=== PATIENT | female | born 1955 | race Two or more races ===

== ENCOUNTER → 2017-07-25 | Outpatient (CLI) | payer MEDICARE, MEDICAID | END | disposition home or self-care (01) | LOC: HKI 10:05 | DX: M17.11 Unilateral primary osteoarthritis, right knee (principal); M21.061 Valgus deformity, not elsewhere classified, right knee | CPT/HCPCS: 73562; 73562-50 ==

== ENCOUNTER → 2017-09-05 | Outpatient (CLI) | payer MEDICARE, OTHER, MEDICAID | END | disposition home or self-care (01) | LOC: HKI 10:21 | DX: Z01.818 Encounter for other preprocedural examination (principal) | CPT/HCPCS: G0463 ==

== ENCOUNTER 2017-09-15 07:30 | Observation (INO) | payer MEDICARE, OTHER, MEDICAID ==
[2017-09-15] MEDS: ONDANSETRON 4 MG INJ IV ×4 (06:00→23:00)
[~2017-09-15 07:30] MED LIST: DEXAMETHASONE 4 MG/ML 1 ML INJ; LACTATED RINGER'S 1,000 ML IV*; LIDOCAINE 2% (SDV) 5 ML INJ; PROPOFOL 200 MG INJ
[2017-09-15] MEDS: ACETAMINOPHEN 1000MG/100ML IV 100 ML IVPB (09:30)
[2017-09-15] MEDS: DEXAMETHASONE 4 MG/ML 1 ML INJ IV (09:31)
[2017-09-15] MEDS: LANSOPRAZOLE 30 MG CAP PO (09:32)
[2017-09-15] MEDS ORDERED: BUPIVACAINE 0.75%/DEXT (SPINAL) 2 ML INJ (10:38)
[2017-09-15] MEDS ORDERED: FENTAnyl 50 MCG/ML VIAL (10:38)
[2017-09-15] MEDS ORDERED: MIDAZOLAM 1 MG/ML 2 ML INJ (10:39)
[2017-09-15] MEDS ORDERED: CEFAZOLIN 1 GM INJ (10:56)
[2017-09-15] MEDS ORDERED: PHENYLephrine (100 MCG/ML) 10ML SYG ×2 (10:56→11:44)
[2017-09-15] MEDS ORDERED: NALOXONE (0.4 MG/ML) INJ IV (11:00)
[2017-09-15] MEDS ORDERED: DIPHENHYDRAMINE 50 MG INJ IV ×2 (11:00→13:00)
[2017-09-15] MEDS ORDERED: BISACODYL 10 MG SUPP PR (11:00)
[2017-09-15] MEDS ORDERED: oxyCODONE 5 MG TAB PO (11:00)
[2017-09-15] MEDS ORDERED: BETHANECHOL 25 MG TAB PO (11:00)
[2017-09-15] MEDS ORDERED: NA PHOSPHATE/BIPHOS 133 ML ENEMA PR (11:00)
[2017-09-15] MEDS: CEFAZOLIN 2 GM/50 ML (PMX) 50 ML IVPB (11:00)
[2017-09-15] MEDS ORDERED: MAGNESIUM HYDROXIDE 30ML CUP PO (11:00)
[2017-09-15] MEDS ORDERED: EPHEDrine 50 MG INJ (11:13)
[2017-09-15] MEDS: TRANEXAMIC ACID 1,000 MG in NS 100 ML PRE-OP X1 IVPB (11:15)
[2017-09-15] MEDS: POLYMYXIN B 500000 UNIT INJ IRR (11:34)
[2017-09-15] MEDS: BACITRACIN 50000 UNITS INJ IRR (11:35)
[2017-09-15] MEDS ORDERED: DEXAMETHASONE 4 MG/ML 1 ML INJ (12:19)
[2017-09-15] MEDS ORDERED: ROPIVACAINE 0.5 % 30 ML VIAL (12:19)
[2017-09-15] MEDS ORDERED: FAMOTIDINE 20 MG INJ (12:28)
[2017-09-15] MEDS ORDERED: ONDANSETRON 4 MG INJ (12:28)
[2017-09-15] MEDS: TRANEXAMIC ACID 1,000 MG in NS 100 ML INTRA-OP X1 IVPB (12:30)
[2017-09-15] MEDS ORDERED: ONDANSETRON 4 MG INJ IV (13:00)
[2017-09-15] MEDS ORDERED: HYDROmorphONE 1 MG/5 ML IV SYRINGE IV (13:00)
[2017-09-15] MEDS ORDERED: MEPERIDINE 25 MG INJ IV (13:00)
[2017-09-15] MEDS: DOCUSATE SODIUM 100 MG CAP PO (13:30)
[2017-09-15] MEDS: ASPIRIN (EC) 325 MG TAB PO (13:30)
[2017-09-15] MEDS: CEFAZOLIN 1 GM/50 ML (PMX) 50 ML IVPB ×2 (13:31→19:53)
[2017-09-15] MEDS: oxyCODONE 5 MG TAB PO ×2 (17:36→21:32)
[2017-09-15] MEDS: SOD CHLORIDE 0.9% 1,000 ML IV ×2 (17:38→23:24)
[2017-09-16] MEDS: CEFAZOLIN 1 GM/50 ML (PMX) 50 ML IVPB (02:12)
[2017-09-16] MEDS: SOD CHLORIDE 0.9% 1,000 ML IV ×3 (02:14→21:54)
[2017-09-16] MEDS: ONDANSETRON 4 MG INJ IV (05:00)
[2017-09-16] MEDS: oxyCODONE 5 MG TAB PO ×5 (05:21→20:42)
[2017-09-16 05:22] LABS: ADD MAN DIFF? NO
[2017-09-16 05:34] LABS: BASOPHILS % 0.1 % (0.0-2.0); HEMATOCRIT 32.4 % (37.0-47.0); HEMOGLOBIN 10.6 g/dl (12.0-16.0); LYMPHOCYTES # 1.8 10^3/ul (0.8-2.9); LYMPHOCYTES % 10.3 % (15.0-51.0); MEAN CORPUSCULAR HEMOGLOBIN 30.8 pg (29.0-33.0); MEAN CORPUSCULAR HGB CONC 32.7 g/dl (32.0-37.0); MEAN CORPUSCULAR VOLUME 94.2 fl (82.0-101.0); MEAN PLATELET VOLUME 9.5 fl (7.4-10.4); MONOCYTE # 1.1 10^3/ul (0.3-0.9); MONOCYTES % 6.1 % (0.0-11.0); NEUTROPHIL # 14.7 10^3/ul (1.6-7.5); PLATELET COUNT 191 10^3/UL (140-415); RED BLOOD COUNT 3.44 10^6/ul (4.20-5.40); RED CELL DISTRIBUTION WIDTH 13.2 % (11.5-14.5)
[2017-09-16 05:34] LABS: WHITE BLOOD COUNT 17.7 10^3/ul (4.8-10.8)
[2017-09-16 05:52] LABS: ANION GAP 14 (8-16); BLOOD UREA NITROGEN 10 mg/dl (7-20); CALCIUM 9.2 mg/dl (8.4-10.2); CARBON DIOXIDE 24 mmol/L (21-31); CHLORIDE 107 mmol/L (97-110); CREATININE 0.49 mg/dl (0.44-1.00); GLUCOSE 170 mg/dl (70-220); POTASSIUM 4.1 mmol/L (3.5-5.1); SODIUM 141 mmol/L (135-144)
[2017-09-16] MEDS: DOCUSATE SODIUM 100 MG CAP PO ×2 (08:49→20:34)
[2017-09-16] MEDS: ASPIRIN (EC) 325 MG TAB PO (08:49)
[2017-09-16] MEDS: FERROUS FUMARATE (SR) TAB PO ×2 (08:50→20:34)
[2017-09-16] MEDS: CELECOXIB 100 MG CAP PO ×2 (08:50→20:34)
[2017-09-16] MEDS: GABAPENTIN 100 MG CAP PO ×2 (08:50→20:34)
[2017-09-16] MEDS: ZOLPIDEM 5 MG TAB PO (20:34)
[2017-09-17] MEDS: ACETAMINOPHEN 325 MG TAB PO (02:05)
[2017-09-17] MEDS: KETOROLAC 15 MG INJ IV (02:06)
[2017-09-17 04:59] LABS: ADD MAN DIFF? NO
[2017-09-17 05:07] LABS: WHITE BLOOD COUNT 10.3 10^3/ul (4.8-10.8)
[2017-09-17 05:07] LABS: BASOPHILS % 0.3 % (0.0-2.0); EOSINOPHILS # 0.1 10^3/ul (0.0-0.5); HEMATOCRIT 31.6 % (37.0-47.0); HEMOGLOBIN 10.2 g/dl (12.0-16.0); LYMPHOCYTES # 3.5 10^3/ul (0.8-2.9); LYMPHOCYTES % 34.3 % (15.0-51.0); MEAN CORPUSCULAR HEMOGLOBIN 30.4 pg (29.0-33.0); MEAN CORPUSCULAR HGB CONC 32.3 g/dl (32.0-37.0); MEAN PLATELET VOLUME 9.7 fl (7.4-10.4); MONOCYTE # 0.9 10^3/ul (0.3-0.9); MONOCYTES % 8.7 % (0.0-11.0); NEUTROPHIL # 5.7 10^3/ul (1.6-7.5); NEUTROPHILS % 55.4 % (39.0-77.0); PLATELET COUNT 178 10^3/UL (140-415); RED BLOOD COUNT 3.36 10^6/ul (4.20-5.40); RED CELL DISTRIBUTION WIDTH 13.5 % (11.5-14.5)
[2017-09-17 05:37] LABS: ANION GAP 11 (8-16); BLOOD UREA NITROGEN 17 mg/dl (7-20); CALCIUM 8.8 mg/dl (8.4-10.2); CARBON DIOXIDE 30 mmol/L (21-31); CHLORIDE 107 mmol/L (97-110); CREATININE 0.64 mg/dl (0.44-1.00); GLUCOSE 117 mg/dl (70-220); POTASSIUM 4.5 mmol/L (3.5-5.1); SODIUM 143 mmol/L (135-144)
[2017-09-17] MEDS: PANTOPRAZOLE (EC) 40 MG TAB PO (05:58)
[2017-09-17] MEDS: FERROUS FUMARATE (SR) TAB PO (09:07)
[2017-09-17] MEDS: ASPIRIN (EC) 325 MG TAB PO (09:07)
[2017-09-17] MEDS: SENNA/DOCUSATE NA (8.6MG/50MG) TAB PO (09:07)
[2017-09-17] MEDS: CELECOXIB 100 MG CAP PO (09:07)
[2017-09-17] MEDS: GABAPENTIN 100 MG CAP PO (09:07)
[2017-09-17] MEDS: DOCUSATE SODIUM 100 MG CAP PO (09:08)
[2017-09-17] MEDS: oxyCODONE 5 MG TAB PO (09:08)
[2017-09-17] MEDS: SOD CHLORIDE 0.9% 1,000 ML IV (11:19)
== END 2017-09-17 15:00 | disposition home health service (06) ==
LOC: REC 07:30 → MS1 13:53
DX: M17.11 Unilateral primary osteoarthritis, right knee (principal); F17.210 Nicotine dependence, cigarettes, uncomplicated; J45.909 Unspecified asthma, uncomplicated; G47.00 Insomnia, unspecified
CPT/HCPCS: 27447; 73560; 80048; 85025; 86850; 86900; 86901; 87081; 88304; 88311; 97110; 97116; 97161; 97167; 97530; 97535; 99217

== ENCOUNTER → 2017-09-26 | Outpatient (CLI) | payer MEDICARE, OTHER, MEDICAID | END | disposition home or self-care (01) | LOC: HKI 10:11 | DX: Z09 Encounter for follow-up examination after completed treatment for conditions other than malignant neoplasm (principal); M25.561 Pain in right knee | CPT/HCPCS: 73560; 73560-RT ==

== ENCOUNTER → 2017-10-24 | Outpatient (CLI) | payer MEDICARE, MEDICAID | END | disposition home or self-care (01) | LOC: HKI 09:26 | DX: Z09 Encounter for follow-up examination after completed treatment for conditions other than malignant neoplasm (principal); Z96.651 Presence of right artificial knee joint | CPT/HCPCS: 73560; 73560-RT ==

== ENCOUNTER 2017-10-31 22:07 | Emergency (ER) | payer MEDICARE, OTHER, MEDICAID ==
[2017-10-31] MEDS: ONDANSETRON (ODT) 4 MG TAB ODT (23:57)
== END 2017-11-01 01:30 | disposition home or self-care (01) ==
LOC: FTE 11-01 01:30
DX: R09.89 Other specified symptoms and signs involving the circulatory and respiratory systems (principal); F17.210 Nicotine dependence, cigarettes, uncomplicated
CPT/HCPCS: 70360; 99283-25

== ENCOUNTER 2017-11-16 20:43 | Emergency (ER) | payer MEDICARE, OTHER ==
[2017-11-17] MEDS: IBUPROFEN 600 MG TAB PO (02:06)
[2017-11-17] MEDS: LIDOCAINE 2%/EPI MPF (SDV) 20 ML VIAL INJ (02:17)
== END 2017-11-17 04:10 | disposition home or self-care (01) ==
LOC: FTE 20:43
DX: S81.011A Laceration without foreign body, right knee, initial encounter (principal); F17.210 Nicotine dependence, cigarettes, uncomplicated; W19.XXXA Unspecified fall, initial encounter; Y92.9 Unspecified place or not applicable; Z96.651 Presence of right artificial knee joint
CPT/HCPCS: 12002; 73562; 99283-25

== ENCOUNTER 2017-11-18 10:56 | Emergency (ER) | payer MEDICARE, OTHER | END 2017-11-18 12:49 | disposition home or self-care (01) | LOC: FTE 10:56 | DX: Z48.01 Encounter for change or removal of surgical wound dressing (principal); F17.210 Nicotine dependence, cigarettes, uncomplicated | CPT/HCPCS: 99283 ==

== ENCOUNTER 2017-11-25 10:33 | Emergency (ER) | payer MEDICARE, OTHER | END 2017-11-25 11:36 | disposition home or self-care (01) | LOC: FTE 10:33 | DX: Z48.01 Encounter for change or removal of surgical wound dressing (principal); F17.210 Nicotine dependence, cigarettes, uncomplicated; Z96.659 Presence of unspecified artificial knee joint | CPT/HCPCS: 99282 ==

== ENCOUNTER → 2017-11-29 | Outpatient (CLI) | payer MEDICARE, OTHER | END | disposition home or self-care (01) | LOC: HKI 10:39 | DX: Z48.00 Encounter for change or removal of nonsurgical wound dressing (principal); Z96.651 Presence of right artificial knee joint | CPT/HCPCS: G0463 ==

== ENCOUNTER → 2017-12-05 | Outpatient (CLI) | payer MEDICARE, OTHER | END | disposition home or self-care (01) | LOC: HKI 10:04 | DX: Z48.02 Encounter for removal of sutures (principal); Z96.651 Presence of right artificial knee joint ==

== ENCOUNTER → 2018-04-10 | Outpatient (CLI) | payer MEDICARE, OTHER | END | disposition home or self-care (01) | LOC: HKI 09:34 | DX: M25.561 Pain in right knee (principal); Z96.651 Presence of right artificial knee joint | CPT/HCPCS: 73560; 73560-RT ==